=== PATIENT | male | born 1985 | race Caucasian/White ===

== ENCOUNTER 2016-11-25 10:38 | Emergency (ER) | payer OTHER, MEDICARE ==
[~2016-11-25] VITALS: Ht 182.9 cm; Wt 81.6 kg
[~2016-11-25 10:38] MED LIST: ALPRAZOLAM0.25 MG PO; AMOXIL500 MG PO; AUGMENTIN 875-1 EACH PO; AZITHROMYCIN250 M1 PO; BACTRIM DS 8001 TAB PO; BENADRYL ALLERG25 MG PO; CIPRODEX 0.3%-7.5 ML OTIC; DOXYCYCLINE100 MG PO; HABITROL21 MG/24 H; IBU800 MG PO; MEDICAL MARIJUANA; PERCOCET 10-321 EACH PO; PERCOCET 325 MG1 TA2 PO; PERCOCET 325 MG1 TAB PO; PROVENTIL HFA6.7 GM INH; TESSALON PERLE100 M1 PO; VENTOLIN HFA18 GM INH; VIBRAMYCIN 100100 MG PO; ZOFRAN4 M1 SL; ZOFRAN4 M2 SL; ZOLPIDEM TARTRA10 MG PO
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
[2016-11-25 12:10] LABS: ABSOLUTE BASOPHIL COUNT 0 /CUMM (0.0-0.2); ABSOLUTE EOSINOPHIL COUNT 0.3 /CUMM (0.0-0.7); ABSOLUTE GRANULOCYTE CT 4.5 /CUMM (1.4-6.5); ABSOLUTE LYMPH COUNT 2.3 /CUMM (1.2-3.4); ABSOLUTE MONOCYTE COUNT 0.3 /CUMM (0.10-0.60); BASOPHIL % 0.4 % (0.0-2.0); EOSINOPHIL % 4.5 % (0-5); GRANULOCYTE % 60.6 % (42.2-75.2); HEMATOCRIT 44.8 % (42-52); MEAN CORPUSCULAR HGB 31.5 PG (27.0-31.0); MEAN CORPUSCULAR HGB CONC 34.1 G/DL (33.0-37.0); MEAN CORPUSCULAR VOLUME 92.5 FL (80.0-94.0); MEAN PLATELET VOLUME 7.3 FL (7.4-10.4); PLATELET COUNT 186 /CUMM (130-400); RBC DISTRIBUTION WIDTH 13.4 % (11.5-14.5); RED BLOOD CELL CT 4.84 /CUMM (4.70-6.10); WHITE BLOOD CELL COUNT 7.4 /CUMM (4.8-10.8)
--- NOTE | 2016-11-25 12:57 | RADIOLOGY REPORT ---
EXAMINATION: XR CHEST CLINICAL INFORMATION: Short of breath, evaluate for pneumonia. COMPARISON: 05/27/2016. TECHNIQUE: 2 views of the chest were obtained. FINDINGS: The cardiomediastinal silhouette is unremarkable. The lungs and pleural spaces appear clear without evidence of congestion, consolidation, or significant appearing effusion or atelectasis. There is no evidence of pneumothorax or pulmonary edema. Included osseous structures appear largely unremarkable. IMPRESSION: Unremarkable examination.
[2016-11-25] MEDS ORDERED: VIBRAMYCIN100 MG PO (13:04)
[2016-11-25 13:19] VITALS: BP 113/68
== END 2016-11-25 13:19 ==
LOC: ERH 10:38
PROVIDERS: Physician Assistant
DX: S80.869A Insect bite (nonvenomous), unspecified lower leg, initial encounter (principal); W57.XXXA Bitten or stung by nonvenomous insect and other nonvenomous arthropods, initial encounter; Y92.9 Unspecified place or not applicable; Y93.9 Activity, unspecified
CPT/HCPCS: 86618; 87804; 87804-59; 93005; 93010

== ENCOUNTER 2017-01-22 18:37 | Emergency (ER) | payer OTHER, MEDICARE ==
[~2017-01-22] VITALS: Ht 182.9 cm; Wt 81.6 kg
[~2017-01-22 18:37] MED LIST changes: +VIBRAMYCIN100 MG PO
[2017-01-22 18:46] VITALS: BP 123/87
[2017-01-22] MEDS ORDERED: KEFLEX500 M1 PO (19:28)
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
== END 2017-01-22 19:30 ==
LOC: ERH 18:37
DX: L03.116 Cellulitis of left lower limb (principal)